=== PATIENT | male | born 1995 | race Caucasian/White ===

== ENCOUNTER → 2016-06-11 | Outpatient (CLI) | payer OTHER | END | disposition home or self-care (01) | LOC: LABWHC1 08:59 | PROVIDERS: ATTEND Psychiatry & Neurology Neurology | DX: G40.209 Localization-related (focal) (partial) symptomatic epilepsy and epileptic syndromes with complex partial seizures, not intractable, without status epilepticus (principal) | CPT/HCPCS: 36415; 80185 ==

== ENCOUNTER → 2017-07-29 | Outpatient (CLI) | payer OTHER | END | disposition home or self-care (01) | LOC: LABWHC1 07:54 | PROVIDERS: ATTEND Psychiatry & Neurology Neurology | DX: G40.209 Localization-related (focal) (partial) symptomatic epilepsy and epileptic syndromes with complex partial seizures, not intractable, without status epilepticus (principal) | CPT/HCPCS: 36415; 80185 ==

== ENCOUNTER → 2018-05-26 | Outpatient (CLI) | payer OTHER | LOC: LABWHC1 10:06 | PROVIDERS: ATTEND Psychiatry & Neurology Neurology | DX: G40.209 Localization-related (focal) (partial) symptomatic epilepsy and epileptic syndromes with complex partial seizures, not intractable, without status epilepticus (principal) | CPT/HCPCS: 36415; 80185 ==

== ENCOUNTER → 2019-01-03 | Outpatient (CLI) | payer OTHER ==
--- NOTE | 2019-01-03 16:44 | CONS ---
CONSULTATION DATE OF SERVICE: 01/03/2019 This patient is a 23-year-old gentleman who has been re-evaluated in [facility] Center for obstructive sleep apnea-hypopnea syndrome. HISTORY OF PRESENT ILLNESS/SLEEP-WAKE EVALUATION: The patient has had obstructive sleep apnea since 2016. At that time he was diagnosed with sleep apnea and started on treatment with BiPAP. Patient continues treatment with BiPAP every night for the whole night. His sleep schedule is from 10 or 11 p.m. until 8 a.m. Recently he had some problems related to the equipment tube. [place] Sleepiness Scale is 3. Patient's weight has increased by 42 pounds since his previous titration, which was done in 2016. PAST MEDICAL HISTORY: Positive for seizure disorder. MEDICATION: Dilantin. SOCIAL HISTORY: Negative for smoking or using alcohol. FAMILY HISTORY: Aortic stenosis and other valve problems, treated surgically. Thyroid problems. PHYSICAL EXAMINATION: GENERAL: A pleasant gentleman without distress. VITAL SIGNS: BP 139/86, HR 82, RR 18, height 6 feet 2 inches, weight 370 pounds. Body mass index 47.5. Temperature 98.0. Oxygen saturation at room air 96%. HEENT: PERRLA, EOMI. Evaluation of oropharynx showed tongue protrudes midline. Extremely low position of soft palate. Mallampati IV. NECK: Supple. No JVD. Thyroid is not palpable. Wide neck; 18-1/2 inches in circumference. LUNGS: Clear to percussion and to auscultation. Good air exchange. No wheezing or rhonchi. HEART: S1, S2 regular. No murmurs, gallops or rubs. ABDOMEN: Obese. EXTREMITIES: No clubbing or cyanosis. CARTOON ANIMATOR: Awake, alert, and oriented X3. Cranial nerves 2 to 7 intact. There is no fasciculation or atrophy. noted. No focal deficits observed. IMPRESSION: 1. Obstructive sleep apnea-hypopnea syndrome. Patient continues to use BiPAP equipment every night. His weight increased by 42 pounds since previous titration. 2. Obesity; body mass index 47.5. 3. History of seizure disorder. No recent episodes. 4. Restriction of nasal breathing. 5. H/o ear infections in childhood. PLAN: 1. Prescription for all necessary BiPAP supplies, including mask, tube, filters. 2. Patient will continue to use BiPAP equipment every night. 3. Obesity. Because of patient's significantly increased weight, I would recommend repeating BiPAP titration. 4. Losing weight. 5. Sleep hygiene with regular time in bed for at least 7-1/2 to 8 hours. 6. No driving if feeling any sleepiness. Thank you very much for allowing me to participate in the management of your patient. Sincerely, Kilo Washington MD, PhD, FAASM Diplomat of [employer] Story Analyst of [facility] [place] MMODL / IJN: [id number] / [facility]
== END | disposition home or self-care (01) ==
LOC: SLEEP 10:22
PROVIDERS: ATTEND Internal Medicine
DX: G47.33 Obstructive sleep apnea (adult) (pediatric) (principal); E66.9 Obesity, unspecified; Z68.42 Body mass index [BMI] 45.0-49.9, adult; Z86.69 Personal history of other diseases of the nervous system and sense organs; Z99.89 Dependence on other enabling machines and devices

== ENCOUNTER → 2019-04-18 | Outpatient (CLI) | payer OTHER | END | disposition home or self-care (01) | LOC: LABWHC1 08:36 | PROVIDERS: ATTEND Psychiatry & Neurology Neurology | DX: G40.209 Localization-related (focal) (partial) symptomatic epilepsy and epileptic syndromes with complex partial seizures, not intractable, without status epilepticus (principal) | CPT/HCPCS: 36415; 80185 ==

== ENCOUNTER → 2019-11-22 | Outpatient (CLI) | payer OTHER ==
--- NOTE | 2019-11-22 10:52 | FL ---
EXAMINATION TYPE: FL barium swallow DATE OF EXAM: 11/22/2019 COMPARISON: None HISTORY: Dysphasia TECHNIQUE: Double air-contrast technique FINDINGS: Esophagus dilates to normal caliber has normal contour gastroesophageal junction. Gastroeso phageal junction opens to normal caliber. No intraluminal or extramural defects are evident. No reflu x was elicited. IMPRESSION: 1. Normal esophagram
== END | disposition home or self-care (01) ==
LOC: RADUSWWP 09:49
PROVIDERS: ATTEND Family Medicine
DX: R13.19 Other dysphagia (principal)
CPT/HCPCS: 74220

== ENCOUNTER → 2019-12-03 | Outpatient (CLI) | payer OTHER ==
--- NOTE | 2019-12-04 09:38 | ECHOF ---
Referral Reason:R94.31 abnormal EKG report MEASUREMENTS -------- HEIGHT: 188.0 cm WEIGHT: 157.8 kg BP: RVIDd: 3.9 cm (< 3.3) IVSd: 1.1 cm (0.6 - 1.1) LVIDd: 4.4 cm (3.9 - 5.3) LVPWd: 1.3 cm (0.6 - 1.1) IVSs: 1.7 cm LVIDs: 3.0 cm LVPWs: 1.7 cm LAESV Index (A-L): 16.81 ml/m Ao Diam: 2.6 cm (2.0 - 3.7) AV Cusp: 1.6 cm (1.5 - 2.6) MV EXCURSION: 20.477 mm (> 18.000) MV EF SLOPE: 56 mm/s (70 - 150) EPSS: 0.3 cm MV E Hollis: 0.92 m/s MV DecT: 142 ms MV A Hollis: 0.63 m/s MV E/A Ratio: 1.45 RAP: 5.00 mmHg RVSP: 21.56 mmHg FINDINGS -------- Sinus rhythm. This was a technically difficult study with suboptimal apical views. The left ventricular size is normal. There is mild concentric left ventricular hypertrophy. Overa ll left ventricular systolic function is normal with, an EF between 55 - 60 %. The diastolic fillin g pattern is normal for the age of the patient {E/E'}. The right ventricle is moderately enlarged. Normal LA size by volume 22+/-6 ml/m2. The right atrial size is normal. xx ml of Lumason was utilized for enhancement of images. Interatrial and interventricular septum intact. There is no evidence of aortic regurgitation. There is no evidence of aortic stenosis. No mitral regurgitation. Mild tricuspid regurgitation present. There is no evidence of pulmonary hypertension. The right v entricular systolic pressure, as measured by Doppler, is 21.56mmHg. There is no pulmonic regurgitation present. The aortic root size is normal. IVC Not well visulized. There is no pericardial effusion. CONCLUSIONS -------- 1. The left ventricular size is normal. 2. There is mild concentric left ventricular hypertrophy. 3. Overall left ventricular systolic function is normal with, an EF between 55 - 60 %. 4. The diastolic filling pattern is normal for the age of the patient {E/E'} 5. The right ventricle is moderately enlarged. 6. Mild tricuspid regurgitation present. QUARRY EQUIPMENT OPERATOR: Radhika Hurtado RDCS
== END | disposition home or self-care (01) ==
LOC: RADECHMAIN 13:44
PROVIDERS: ATTEND Family Medicine
DX: I07.1 Rheumatic tricuspid insufficiency (principal)
CPT/HCPCS: C8929; Q9950; 93306

== ENCOUNTER → 2020-03-19 | Outpatient (CLI) | payer OTHER ==
--- NOTE | 2020-03-20 00:03 | SFUN ---
SLEEP CENTER FOLLOW UP NOTE DATE OF SERVICE: 03/19/2020 This 24-year-old gentleman has been followed in sleep center for treatment of obstructive sleep apnea-hypopnea syndrome. The patient successfully continuing to use his BiPAP equipment every night. No snoring with the machine. [place] Sleepiness Scale today is only 1, which is perfect. I checked his BiPAP unit BiPAP pressure 13/9 cm of water. The patient using it 100% of the time. Average usage 8.2 hours per night, which is good compliance. Leak is 16 L/minutes which is borderline. Apnea-hypopnea index is 3.6, which is in normal range. MEDICATIONS: Dilantin 100 mg once a day. PHYSICAL EXAMINATION: GENERAL: Patient in no distress. VITAL SIGNS: BP 138/89, HR 94, RR 15, height 6 feet 2 inches, weight 337, BMI 43.2, temperature 98.2, oxygen saturation at room air 96%. HEENT: PERRLA, EOMI. Oropharynx extremely low position of soft palate. Mallampati 4. NECK: Supple, no JVD. Thyroid is not palpable. LUNGS: Clear to percussion and to auscultation. Good air exchange. No wheezing or rhonchi. HEART: S1, S2 regular. No murmurs, gallops, or rubs. ABDOMEN: Obese. EXTREMITIES: No clubbing or cyanosis. MARKETING STRATEGIST: Awake, alert, and oriented X3. Cranial nerves 2 to 7 intact. There is no fasciculation or atrophy. noted. No focal deficits observed. IMPRESSION: 1. Obstructive sleep apnea-hypopnea syndrome. Patient demonstrated 100% compliance with BiPAP treatment, benefitting from treatment. Patient lost about 30 pounds since visit in 2019. 2. Obesity, body mass index 43.2. Patient lost about 30 pounds since previous visit. 3. History of epilepsy, seizures disorder. No recent episode. 4. Restriction of nasal breathing. 5. History of ear infection in childhood. PLAN: 1. Patient will continue to use PAP equipment every night for the whole night. 2. Sleep hygiene with regular time in bed for at least 7-1/2 to 8 hours. 3. Precautions related to driving. No driving if feeling sleepiness. 4. I will maintain all necessary prescription for PAP supplies including mask, tube, filters. 5. Watching weight. 6. No driving if feeling sleepiness. 7. Follow-up visit in 6 months or earlier if patient has any problems. Thank you very much for allowing me to participate in management of your patient. Sincerely, Kilo Washington MD, PhD, FAASM Diplomat of [employer] Nurse Informatics Educator of [facility] [place] MMODL / AKHILN: [id number] /
== END | disposition home or self-care (01) ==
LOC: SLEEP 15:34
PROVIDERS: ATTEND Internal Medicine
DX: G47.33 Obstructive sleep apnea (adult) (pediatric) (principal); E66.9 Obesity, unspecified; R91.8 Other nonspecific abnormal finding of lung field; Z68.41 Body mass index [BMI] 40.0-44.9, adult; Z86.69 Personal history of other diseases of the nervous system and sense organs; Z99.89 Dependence on other enabling machines and devices; Z86.19 Personal history of other infectious and parasitic diseases

== ENCOUNTER 2020-10-21 10:45 | Emergency (ER) | payer OTHER ==
[2020-10-21] MEDS ORDERED: KETOROLAC 15 MG/ML 1 ML VIAL IVP STA (11:33)
--- NOTE | 2020-10-21 11:43 | ED ---
Chest Pain HPI - General Chief Complaint: Chest Pain Stated Complaint: chest pain Time Seen by Provider: 10/21/20 11:26 Source: patient, RN notes reviewed Mode of arrival: wheelchair Limitations: no limitations - History of Present Illness Initial Comments: 25-year-old male presents emergency Department chief complaint of chest discomfort. Patient states it started earlier this morning of the sharp. Patient states and the pain has subsided he denies any associated symptoms including diaphoresis, nausea, vomiting, shortness breath, cough or cold sy mptoms, fevers chills. Patient has no prior history along the heart disease he states he does have a history of seizures in which he takes Dilantin. Patient denies any focal weakness headache no dizziness or syncope. - Related Data Home Medications Medication Instructions Recorded Confirmed Phenytoin Sodium Extended 200 mg PO DAILY 10/19/13 10/21/20 [Dilantin] Phenytoin Sodium Extended 300 mg PO HS 10/21/20 10/21/20 [Dilantin] Allergies Allergy/AdvReac Type Severity Reaction Status Date / Time sulfamethoxazole Allergy Rash/Hives Verified 10/21/20 12:12 [From Septra] trimethoprim [From Septra] Allergy Rash/Hives Verified 10/21/20 12:12 Review of Systems ROS Statement: Those systems with pertinent positive or pertinent negative responses have been documented in the HPI. ROS Other: All systems not noted in ROS Statement are negative. EKG Findings - EKG Comments: EKG Findings:: EKG performed at 11:11 normal sinus rhythm rate of 95 KS 150 QRS 100 QT/QTC 350/439 Past Medical History Past Medical History: Seizure Disorder History of Any Multi-Drug Resistant Organisms: None Reported Past Surgical History: Adenoidectomy, Tonsillectomy Past Psychological History: No Psychological Hx Reported Smoking Status: Never smoker Past Alcohol Use History: None Reported Past Drug Use History: None Reported General Exam Limitations: no limitations General appearance: alert, in no apparent distress Head exam: Present: atraumatic, normocephalic, normal inspection Eye exam: Present: normal appearance, PERRL, EOMI. Absent: scleral icterus, conjunctival injection, periorbital swelling ENT exam: Present: normal exam, normal oropharynx, mucous membranes moist Neck exam: Present: normal inspection, full ROM. Absent: tenderness, meningismus, lymphadenopathy Respiratory exam: Present: normal lung sounds bilaterally, chest wall tenderness. Absent: respiratory distress, wheezes, rales, rhonchi, stridor Cardiovascular Exam: Present: regular rate, normal rhythm, normal heart sounds. Absent: systolic murmur, diastolic murmur, rubs, gallop, clicks GI/Abdominal exam: Present: soft, normal bowel sounds. Absent: distended, tenderness, guarding, rebound, rigid Course Vital Signs 10/21/20 10/21/20 10/21/20 11:03 12:05 12:55 Temperature 98.2 F Pulse Rate 102 H 90 Pulse Rate [ 75 Angle Shearer ] Respiratory 18 17 Rate Blood Pressure 161/78 122/82 O2 Sat by Pulse 100 99 Oximetry Chest Pain MDM - MDM 25-year-old presented for chest discomfort. Symptoms improved after Toradol. Workup was negative including negative d-dimer and troponin. Patient has chest wall pain will be discharged in stable condition return parameters discussed. Disposition Clinical Impression: Atypical chest pain, Chest wall pain Disposition: HOME SELF-CARE Condition: Stable Instructions (If sedation given, give patient instructions): Chest Pain (ED) Additional Instructions: Please return to the Emergency Department if symptoms worsen or any other concerns. Is patient prescribed a controlled substance at d/c from ED?: No Referrals: Ton Charles DO [Primary Care Provider] - 1-2 days Time of Disposition: 13:42
[2020-10-21 12:24] LABS: Basophils % (A) 0 %; Eosinophils # (A) 0.1 k/uL (0-0.7); Eosinophils % (A) 2 %; HCT 47.8 % (39.0-53.0); HGB 15.6 gm/dL (13.0-17.5); Lymphocytes # (A) 2.3 k/uL (1.0-4.8); Lymphocytes % (A) 34 %; MCH 28.9 pg (25.0-35.0); MCHC 32.6 g/dL (31.0-37.0); MCV 88.6 fL (80.0-100.0); Mean Platelet Volume 6.5; Monocytes # (A) 0.3 k/uL (0-1.0); Monocytes % (A) 4 %; Neutrophils % (A) 58 %; Platelet Count 397 k/uL (150-450); RBC 5.39 m/uL (4.30-5.90); RDW 13.1 % (11.5-15.5); WBC 6.8 k/uL (3.8-10.6)
--- NOTE | 2020-10-21 12:31 | XR ---
EXAMINATION TYPE: XR chest 2V DATE OF EXAM: 10/21/2020 COMPARISON: NONE HISTORY: Chest pain TECHNIQUE: Frontal and lateral views of the chest are obtained. FINDINGS: There is no focal air space opacity, pleural effusion, or pneumothorax seen. The cardiac silhouette size is within normal limits. The osseous structures are intact. IMPRESSION: No acute cardiopulmonary process.
[2020-10-21 12:42] LABS: ALT 35 U/L (4-49); AST 34 U/L (17-59); African American GFR (CKD) >90 (>60 ml/min/1.73 sqM); Albumin 4.8 g/dL (3.5-5.0); Alkaline Phosphatase 115 U/L (38-126); Anion Gap 11 mmol/L; Blood Urea Nitrogen 16 mg/dL (9-20); Carbon Dioxide 25 mmol/L (22-30); Chloride 105 mmol/L (98-107); Glucose 88 mg/dL (74-99); Lipase 81 U/L (23-300); Non-African American GFR(CKD) >90 (>60 ml/min/1.73 sqM); Potassium 4.3 mmol/L (3.5-5.1); Sodium 141 mmol/L (137-145); Total Bilirubin 0.3 mg/dL (0.2-1.3); Total Protein 7.7 g/dL (6.3-8.2)
[2020-10-21 12:53] LABS: D-Dimer <0.17 mg/L FEU (<0.60); Partial Thromboplastin Time 24.7 sec (22.0-30.0); Prothrombin Time 10.6 sec (9.0-12.0)
[2020-10-21 12:57] VITALS: RESP 17
[2020-10-21 14:00] VITALS: BP 128/82; PULSE 80; TEMP 98.3
== END 2020-10-21 14:01 | disposition home or self-care (01) ==
LOC: EC 10:45
DX: R07.89 Other chest pain (principal); G40.909 Epilepsy, unspecified, not intractable, without status epilepticus; Z79.899 Other long term (current) drug therapy; Z88.1 Allergy status to other antibiotic agents; Z88.2 Allergy status to sulfonamides
CPT/HCPCS: 96374 ×2; 99285 ×2; 36415; 93005; 85379; 80053; 83690; 83735; 84484; 85025; 85610; 85730; 71046; J1885

== ENCOUNTER 2020-10-22 13:03 | Emergency (ER) | payer OTHER ==
[2020-10-22 13:18] VITALS: RESP 18
[2020-10-22 14:02] VITALS: TEMP 98.7
[2020-10-22] MEDS ORDERED: SODIUM CHLORIDE 0.9% 500 ML 500 ML IV STA (14:41)
--- NOTE | 2020-10-22 14:41 | ED ---
Chest Pain HPI - General Chief Complaint: Chest Pain Stated Complaint: Chest pain/ABD pain-Revisit Source: patient, family, RN notes reviewed Mode of arrival: wheelchair Limitations: no limitations - History of Present Illness Initial Comments: 25-year-old, obese white male presents to the emergency room with complaints of left-sided chest pain that radiates to his left axilla. Patient states he was seen yesterday for the same and had an x-ray and lab work and EKG done all within normal limits. States pain resolved with tramadol per mom. Patient states that he get the shower today and had burning chest pain. Patient denies chest pain with exertion, palpation or movement. Denies any shortness of breath, denies any fevers. There is no family history of sudden cardiac . Mom states that she had a valve replacement and there is family history of aortic stenosis. Patient was seen by Dr. Charles and was told that they would schedule an echo but he does not have one scheduled at this time. Patient denies dizzines. Patient has a history of seizure disorder and has been on Dilantin and has been seizure free for several years. MD Complaint: chest pain -: days(s) (2) Onset: during rest Pain Location: substernal, left chest Pain Radiation: none Severity scale (1-10): 7 Quality: other (burning) Consistency: intermittent Improves With: medication-other (Tramadol and NSAIDs) Worsens With: nothing - Related Data Home Medications Medication Instructions Recorded Confirmed Phenytoin Sodium Extended 200 mg PO DAILY 10/19/13 10/22/20 [Dilantin] Phenytoin Sodium Extended 300 mg PO HS 10/21/20 10/22/20 [Dilantin] Previous Rx's Medication Instructions Recorded Famotidine [Pepcid] 20 mg PO DAILY 28 Days #28 tablet 10/22/20 Allergies Allergy/AdvReac Type Severity Reaction Status Date / Time sulfamethoxazole Allergy Rash/Hives Verified 10/22/20 14:28 [From ] trimethoprim [From ] Allergy Rash/Hives Verified 10/22/20 14:28 Review of Systems ROS Statement: Those systems with pertinent positive or pertinent negative responses have been documented in the HPI. ROS Other: All systems not noted in ROS Statement are negative. Past Medical History Past Medical History: Seizure Disorder History of Any Multi-Drug Resistant Organisms: None Reported Past Surgical History: Adenoidectomy, Tonsillectomy Past Psychological History: No Psychological Hx Reported Smoking Status: Never smoker Past Alcohol Use History: None Reported Past Drug Use History: None Reported General Exam Limitations: no limitations General appearance: alert, in no apparent distress Head exam: Present: atraumatic, normocephalic, normal inspection Eye exam: Present: normal appearance, PERRL, EOMI. Absent: scleral icterus, conjunctival injection, periorbital swelling ENT exam: Present: normal exam, normal oropharynx, mucous membranes moist Neck exam: Present: normal inspection, full ROM. Absent: tenderness, meningismus, lymphadenopathy Respiratory exam: Present: normal lung sounds bilaterally. Absent: respiratory distress, wheezes, rales, rhonchi, stridor Cardiovascular Exam: Present: regular rate, normal rhythm, normal heart sounds. Absent: systolic murmur, diastolic murmur, rubs, gallop, clicks GI/Abdominal exam: Present: soft, normal bowel sounds. Absent: distended, tenderness, guarding, rebound, rigid Rectal exam: Present: deferred Extremities exam: Present: normal inspection, full ROM, normal capillary refill. Absent: tenderness, pedal edema, joint swelling, calf tenderness Back exam: Present: normal inspection. Absent: full ROM, tenderness, CVA tenderness (R), CVA tenderness (L), muscle spasm, paraspinal tenderness, vertebral tenderness, rash noted Neurological exam: Present: alert, oriented X3, CN II-XII intact Psychiatric exam: Present: normal affect, normal mood Skin exam: Present: warm, dry, intact, normal color. Absent: rash, cyanosis, diaphoretic, erythema, petechiae, pallor, mottled, abrasion Course Vital Signs 10/22/20 10/22/20 10/22/20 13:14 13:50 15:10 Temperature 97.8 F 98.7 F Pulse Rate 82 94 81 Respiratory 18 18 18 Rate Blood Pressure 141/80 137/88 148/73 O2 Sat by Pulse 100 100 99 Oximetry 10/22/20 16:16 Temperature Pulse Rate 75 Respiratory 18 Rate Blood Pressure 126/80 O2 Sat by Pulse 99 Oximetry Chest Pain MDM - MDM EKG within normal limits, labs are within normal limits with a troponin negative at 0.012. This workup was performed yesterday and is unchanged. Chest x-ray yesterday was negative. Patient without any fever or cough or shortness of breath. Patient has a heart score of 1, (obesity and family history). Patient didn't see primary care doctor Dr. Charles this morning and was told he would schedule an echo for the patient however they do not have the date yet. Patient directed to follow up with primary care doctor and take Pepcid once a day for the burning type chest pain as he described. Patient is well-appearing vital signs within normal limits. Case discussed with Dr Lancaster. Disposition Clinical Impression: Chest pain Disposition: HOME SELF-CARE Condition: Fair Instructions (If sedation given, give patient instructions): Chest Pain (ED) Additional Instructions: Follow-up with the primary care doctor, Dr. Charles in 1 week. Take Pepcid as prescribed once a day. [id number] Tylenol or Motrin for pain. Return to the emergency room with increasing pain, shortness of breath or fevers. Prescriptions: Famotidine [Pepcid] 20 mg PO DAILY 28 Days #28 tablet Is patient prescribed a controlled substance at d/c from ED?: No Referrals: Ton Charles DO [Primary Care Provider] - 1-2 days Time of Disposition: 16:58
[2020-10-22] MEDS ORDERED: KETOROLAC 15 MG/ML 1 ML VIAL IVP STA (14:42)
[2020-10-22 15:58] LABS: Basophils % (A) 0 %; Eosinophils # (A) 0.1 k/uL (0-0.7); Eosinophils % (A) 1 %; HCT 43.1 % (39.0-53.0); HGB 14.8 gm/dL (13.0-17.5); Lymphocytes # (A) 2.5 k/uL (1.0-4.8); Lymphocytes % (A) 25 %; MCH 30.3 pg (25.0-35.0); MCHC 34.3 g/dL (31.0-37.0); MCV 88.4 fL (80.0-100.0); Mean Platelet Volume 6.3; Monocytes # (A) 0.5 k/uL (0-1.0); Monocytes % (A) 5 %; Neutrophils # (A) 6.5 k/uL (1.3-7.7); Neutrophils % (A) 66 %; Platelet Count 345 k/uL (150-450); RBC 4.88 m/uL (4.30-5.90); RDW 13.1 % (11.5-15.5); WBC 9.9 k/uL (3.8-10.6)
[2020-10-22 16:10] LABS: ALT 35 U/L (4-49); AST 31 U/L (17-59); African American GFR (CKD) >90 (>60 ml/min/1.73 sqM); Albumin 4.4 g/dL (3.5-5.0); Alkaline Phosphatase 101 U/L (38-126); Anion Gap 9 mmol/L; Blood Urea Nitrogen 15 mg/dL (9-20); Calcium 9.6 mg/dL (8.4-10.2); Carbon Dioxide 28 mmol/L (22-30); Chloride 105 mmol/L (98-107); Glucose 89 mg/dL (74-99); Magnesium 2.1 mg/dL (1.6-2.3); Non-African American GFR(CKD) >90 (>60 ml/min/1.73 sqM); Potassium 4.3 mmol/L (3.5-5.1); Sodium 142 mmol/L (137-145); Total Bilirubin 0.2 mg/dL (0.2-1.3)
[2020-10-22] MEDS ORDERED: FAMOTIDINE 20 MG/2 ML VIAL IV STA (16:54)
[2020-10-22 17:33] VITALS: BP 129/74; PULSE 81
== END 2020-10-22 17:36 | disposition home or self-care (01) ==
LOC: EC 13:03
DX: R07.89 Other chest pain (principal); G40.909 Epilepsy, unspecified, not intractable, without status epilepticus; E66.9 Obesity, unspecified; Z68.41 Body mass index [BMI] 40.0-44.9, adult
CPT/HCPCS: 36415; 80053; 83735; 84484; 85025; 99285; 96374; 96375; 96361; J1885

== ENCOUNTER → 2020-10-27 | Outpatient (CLI) | payer OTHER ==
[2020-10-27 18:54] LABS: Chol/HDL Ratio 4.84; LDL Cholesterol,Calculated 141.4 mg/dL (0.0-131.0); VLDL Calculation 27.6 mg/dL (5.00-40.00)
== END | disposition home or self-care (01) ==
LOC: LABWHC1 09:18
PROVIDERS: ATTEND Internal Medicine Cardiovascular Disease
DX: E78.2 Mixed hyperlipidemia (principal)
CPT/HCPCS: 36415; 80061; 84450; 84460

== ENCOUNTER → 2020-11-10 | Outpatient (CLI) | payer OTHER | END | disposition home or self-care (01) | DX: G40.209 Localization-related (focal) (partial) symptomatic epilepsy and epileptic syndromes with complex partial seizures, not intractable, without status epilepticus (principal) | CPT/HCPCS: 36415; 80185 ==

== ENCOUNTER 2020-12-02 21:30 | Emergency (ER) | payer OTHER ==
[2020-12-02 21:35] VITALS: TEMP 98.1
[2020-12-02 22:21] VITALS: RESP 18
--- NOTE | 2020-12-02 22:25 | ED ---
General Adult HPI - General Chief complaint: Chest Pain Stated complaint: chest Pain, L arm pain Time Seen by Provider: 12/02/20 21:47 Source: patient Mode of arrival: ambulatory Limitations: no limitations - History of Present Illness Initial comments: 25 year-old male patient presents to the emergency department for evaluation of left sided chest pain and left arm pain. Patient has been having chest pain for the last month. States that he always has pain at a 1-2 on the pain scale. States that at times the pain increases to around a 4/10. States that this morning he started having left upper arm pain and then wrist pain which is new for him. He denies any associated symptoms including shortness of breath, nausea, sweating, dizziness, or weakness. States he is not doing any activity when the pain flares. He has seen cardiology and had stress test last week, he was unable to complete the most rigorous portion of the test, but what he did complete was normal. They are working on authorization for ECHO from his insurance. Denies any abdominal pain, constipation, or diarrhea. Does take Dilantin for seizures and Pepcid, denies any other medications. Mother does report a strong family history of heart disease on her side, unknown family h istory on father's side. - Related Data Home Medications Medication Instructions Recorded Confirmed Phenytoin Sodium Extended 200 mg PO DAILY 10/19/13 10/22/20 [Dilantin] Phenytoin Sodium Extended 300 mg PO HS 10/21/20 10/22/20 [Dilantin] Previous Rx's Medication Instructions Recorded Famotidine [Pepcid] 20 mg PO DAILY 28 Days #28 tablet 10/22/20 Allergies Allergy/AdvReac Type Severity Reaction Status Date / Time sulfamethoxazole Allergy Rash/Hives Verified 12/02/20 21:35 [From ] trimethoprim [From ] Allergy Rash/Hives Verified 12/02/20 21:35 Review of Systems ROS Statement: Those systems with pertinent positive or pertinent negative responses have been documented in the HPI. ROS Other: All systems not noted in ROS Statement are negative. Past Medical History Past Medical History: Seizure Disorder Additional Past Medical History / Comment(s): stress test History of Any Multi-Drug Resistant Organisms: None Reported Past Surgical History: Adenoidectomy, Tonsillectomy Past Psychological History: No Psychological Hx Reported Smoking Status: Never smoker Past Alcohol Use History: None Reported Past Drug Use History: None Reported - Past Family History Mother Additional Family Medical History / Comment(s): Aortic stenosis; heart valve replacement age 39. Maternal grandmother age 48 [place]; maternal grandfather hx [place] General Exam Limitations: no limitations General appearance: alert, in no apparent distress, other (This is a well-devel oped, well-nourished adult male patient in no acute distress. Vital signs upon presentation temperature 98.1F, pulse 94, respirations 17, blood pressure 141/76, pulse ox 99% on room air.) ENT exam: Present: normal exam, normal oropharynx, mucous membranes moist Respiratory exam: Present: normal lung sounds bilaterally. Absent: respiratory distress, wheezes, rales, rhonchi, stridor, chest wall tenderness Cardiovascular Exam: Present: regular rate, normal rhythm, normal heart sounds. Absent: systolic murmur, diastolic murmur, rubs, gallop, clicks GI/Abdominal exam: Present: soft, normal bowel sounds. Absent: distended, tenderness, guarding, rebound, rigid Neurological exam: Present: alert, oriented X3, CN II-XII intact Psychiatric exam: Present: normal affect, normal mood Skin exam: Present: warm, dry, intact, normal color. Absent: rash Course Vital Signs 12/02/20 12/02/20 21:32 22:18 Temperature 98.1 F Pulse Rate 94 85 Respiratory 17 18 Rate Blood Pressure 141/76 138/79 O2 Sat by Pulse 99 98 Oximetry EKG Findings - EKG Comments: EKG Findings:: EKG obtained at 2145 shows normal sinus rhythm with ventricular rate of 82, [place] interval 158, QRS duration 100, QT 374, QTC 436. No evidence of ST elevation or depression. Medical Decision Making - Medical Decision Making 25-year-old male patient presents for evaluation of left-sided chest pain, left arm pain and left wrist pain. Physical examination was unremarkable. Lungs clear to auscultation. No reproducible pain. Radial pulses intact. Arm is pink, warm, dry. Labs reviewed and were unremarkable. Troponin negative. CT angiography of the chest was obtained and showed no abnormalities. I did discuss results with patient and his mother. Instructed them to follow up with cardiology for ECHO as planned. Return parameters were discussed in detail. They verbalize understanding and agree with this plan. Case discussed with my attending Dr. Flores. - Lab Data Result diagrams: 12/02/20 22:23 12/02/20 22:23 Lab Results 12/02/20 12/02/20 12/02/20 Range/Units 22:23 22:23 22:23 WBC 12.3 H (3.8-10.6) k/uL RBC 5.16 (4.30-5.90) m/uL Hgb 15.6 (13.0-17.5) gm/dL Hct 46.4 (39.0-53.0) % MCV 89.9 (80.0-100.0) fL MCH 30.3 (25.0-35.0) pg MCHC 33.7 (31.0-37.0) g/dL RDW 12.7 (11.5-15.5) % Plt Count 377 (150-450) k/uL MPV 6.7 Neutrophils % 65 % Lymphocytes % 25 % Monocytes % 5 % Eosinophils % 3 % Basophils % 0 % Neutrophils # 8.0 H (1.3-7.7) k/uL Lymphocytes # 3.1 (1.0-4.8) k/uL Monocytes # 0.6 (0-1.0) k/uL Eosinophils # 0.4 (0-0.7) k/uL Basophils # 0.0 (0-0.2) k/uL PT 10.5 (9.0-12.0) sec INR 1.0 (<1.2) APTT 24.9 (22.0-30.0) sec Sodium 139 (137-145) mmol/L Potassium 4.2 (3.5-5.1) mmol/L Chloride 104 (98-107) mmol/L Carbon Dioxide 26 (22-30) mmol/L Anion Gap 9 mmol/L BUN 15 (9-20) mg/dL Creatinine 0.62 L (0.66-1.25) mg/dL Est GFR (CKD-EPI)AfAm >90 (>60 ml/min/1.73 sqM) Est GFR (CKD-EPI)NonAf >90 (>60 ml/min/1.73 sqM) Glucose 96 (74-99) mg/dL Calcium 9.8 (8.4-10.2) mg/dL Magnesium 2.2 (1.6-2.3) mg/dL Total Bilirubin <0.1 L (0.2-1.3) mg/dL AST 28 (17-59) U/L ALT 32 (4-49) U/L Alkaline Phosphatase 108 (38-126) U/L Troponin I (0.000-0.034) ng/mL Total Protein 7.1 (6.3-8.2) g/dL Albumin 4.4 (3.5-5.0) g/dL Lipase 83 (23-300) U/L 12/02/20 Range/Units 22:23 WBC (3.8-10.6) k/uL RBC (4.30-5.90) m/uL Hgb (13.0-17.5) gm/dL Hct (39.0-53.0) % MCV (80.0-100.0) fL MCH (25.0-35.0) pg MCHC (31.0-37.0) g/dL RDW (11.5-15.5) % Plt Count (150-450) k/uL MPV Neutrophils % % Lymphocytes % % Monocytes % % Eosinophils % % Basophils % % Neutrophils # (1.3-7.7) k/uL Lymphocytes # (1.0-4.8) k/uL Monocytes # (0-1.0) k/uL Eosinophils # (0-0.7) k/uL Basophils # (0-0.2) k/uL PT (9.0-12.0) sec INR (<1.2) APTT (22.0-30.0) sec Sodium (137-145) mmol/L Potassium (3.5-5.1) mmol/L Chloride (98-107) mmol/L Carbon Dioxide (22-30) mmol/L Anion Gap mmol/L BUN (9-20) mg/dL Creatinine (0.66-1.25) mg/dL Est GFR (CKD-EPI)AfAm (>60 ml/min/1.73 sqM) Est GFR (CKD-EPI)NonAf (>60 ml/min/1.73 sqM) Glucose (74-99) mg/dL Calcium (8.4-10.2) mg/dL Magnesium (1.6-2.3) mg/dL Total Bilirubin (0.2-1.3) mg/dL AST (17-59) U/L ALT (4-49) U/L Alkaline Phosphatase (38-126) U/L Troponin I <0.012 (0.000-0.034) ng/mL Total Protein (6.3-8.2) g/dL Albumin (3.5-5.0) g/dL Lipase (23-300) U/L - Radiology Data Radiology results: report reviewed, image reviewed Two-view x-ray of the chest is obtained. Report is reviewed in its entirety. Impression by Dr. Joseph shows normal chest. No change. CT chest angiography was was obtained. Report was reviewed in its entirety. Impression by Dr. Joseph shows negative computed tomography scan of the chest. No evidence of pulmonary embolism. Disposition Clinical Impression: Chest pain, Left arm pain Disposition: HOME SELF-CARE Condition: Good Instructions (If sedation given, give patient instructions): Chest Pain (ED), Arm Pain (ED) Additional Instructions: Follow up with primary care physician and cardiology as soon as possible. Return to the emergency department for evaluation for any new, worsening, or concerning symptoms. Is patient prescribed a controlled substance at d/c from ED?: No Referrals: Ton Charles DO [Primary Care Provider] - 1-2 days Time of Disposition: 23:57
[2020-12-02 22:32] LABS: Basophils % (A) 0 %; Eosinophils # (A) 0.4 k/uL (0-0.7); Eosinophils % (A) 3 %; HCT 46.4 % (39.0-53.0); HGB 15.6 gm/dL (13.0-17.5); Lymphocytes # (A) 3.1 k/uL (1.0-4.8); Lymphocytes % (A) 25 %; MCH 30.3 pg (25.0-35.0); MCHC 33.7 g/dL (31.0-37.0); MCV 89.9 fL (80.0-100.0); Mean Platelet Volume 6.7; Monocytes # (A) 0.6 k/uL (0-1.0); Monocytes % (A) 5 %; Neutrophils % (A) 65 %; Platelet Count 377 k/uL (150-450); RBC 5.16 m/uL (4.30-5.90); RDW 12.7 % (11.5-15.5); WBC 12.3 k/uL (3.8-10.6)
[2020-12-02 22:41] LABS: ALT 32 U/L (4-49); AST 28 U/L (17-59); African American GFR (CKD) >90 (>60 ml/min/1.73 sqM); Albumin 4.4 g/dL (3.5-5.0); Alkaline Phosphatase 108 U/L (38-126); Anion Gap 9 mmol/L; Blood Urea Nitrogen 15 mg/dL (9-20); Calcium 9.8 mg/dL (8.4-10.2); Carbon Dioxide 26 mmol/L (22-30); Chloride 104 mmol/L (98-107); Glucose 96 mg/dL (74-99); Lipase 83 U/L (23-300); Magnesium 2.2 mg/dL (1.6-2.3); Non-African American GFR(CKD) >90 (>60 ml/min/1.73 sqM); Potassium 4.2 mmol/L (3.5-5.1); Sodium 139 mmol/L (137-145); Total Bilirubin <0.1 mg/dL (0.2-1.3); Total Protein 7.1 g/dL (6.3-8.2)
[2020-12-02 22:42] LABS: Partial Thromboplastin Time 24.9 sec (22.0-30.0); Prothrombin Time 10.5 sec (9.0-12.0)
--- NOTE | 2020-12-02 23:00 | XR ---
EXAMINATION TYPE: XR chest 2V DATE OF EXAM: 12/02/2020 COMPARISON: 10/21/2020 HISTORY: Chest pain TECHNIQUE: FINDINGS: Heart and mediastinal normal. Lungs are clear. Diaphragm is normal. Bony thorax appears nor mal. IMPRESSION: Normal chest. No change.
--- NOTE | 2020-12-02 23:54 | CT ---
EXAMINATION TYPE: CT chest angio for PE DATE OF EXAM: 12/02/2020 COMPARISON: None HISTORY: Chest pain CT DLP: 1050.2 mGycm Automated exposure control for dose reduction was used. CONTRAST: Performed with IV Contrast, patient injected with 80 mL of Isovue 370. Images obtained from the thoracic inlet to the diaphragm with IV contrast. There are 3-D post processed images. The lungs are clear of infiltrate. There is no pleural effusion. There is no pericardial effusion. He art size is normal. There is no mediastinal adenopathy. There are no hilar masses. Thoracic aorta appears normal. There i s no aneurysm or dissection. There is normal contrast opacification of the pulmonary arteries. There are no filling defects. The thoracic spine is intact. There is no compression fracture. Sternum is intact. IMPRESSION: Negative CT scan of the chest. No evidence of pulmonary embolism.
[2020-12-03 00:08] VITALS: BP 130/74; PULSE 75
== END 2020-12-03 00:07 | disposition home or self-care (01) ==
LOC: EC 21:30
DX: R07.89 Other chest pain (principal); M79.622 Pain in left upper arm; Z79.899 Other long term (current) drug therapy
CPT/HCPCS: 36415; 93005; 80053; 83690; 83735; 84484; 85025; 85610; 85730; 71046; 71275; 99285; Q9967

== ENCOUNTER → 2020-12-24 | Outpatient (CLI) | payer OTHER ==
--- NOTE | 2020-12-24 21:53 | SFUN ---
SLEEP CENTER FOLLOW UP NOTE DATE OF SERVICE: 12/24/2020 This 25-year-old gentleman has been followed in Sleep Center for treatment of obstructive sleep apnea-hypopnea syndrome. Patient continues to use his CPAP equipment every night for the whole night. He sleeps well with the machine. No snoring. Message on the machine showed time for using the motor is more than it should be. Electrical cord was broken. I checked the BiPAP unit. Pressure is 13/9 cm of water. Usage is 100% of nights and 29/30 nights for more than 4 hours, average 8.1 hours per night, which is perfect. Leak is 18 L/minute, which is borderline. Apnea-hypopnea index is 3.2, which is normal. MEDICATIONS: Dilantin 100 mg once a day. PHYSICAL EXAMINATION: GENERAL: A pleasant patient in no distress. VITAL SIGNS: BP 153/92, HR 88, RR 15, height 6 feet 2 inches, weight 337, which is the same as the last visit. Body mass index 43.3, temperature 98.5, oxygen saturation at room air 97%. HEENT: PERRLA, EOMI, evaluation of oropharynx showed tongue protrudes midline. Extremely low position of soft palate. Mallampati IV. NECK: Supple, no JVD. Thyroid is not palpable. LUNGS: Clear to percussion and to auscultation. Good air exchange. No wheezing or rhonchi. HEART: S1, S2 regular. No murmurs, gallops, or rubs. ABDOMEN: Obese. EXTREMITIES: No clubbing or cyanosis. IT INSTRUCTOR: Awake, alert, and oriented X3. Cranial nerves 2 to 7 intact. There is no fasciculation or atrophy. noted. No focal deficits observed. IMPRESSION: 1. Obstructive sleep apnea-hypopnea syndrome. Patient demonstrated great compliance with treatment. Normal respiration on BiPAP. 2. History of epilepsy. No recent seizure episodes. 3. Obesity. Body mass index 43.3. 4. Restriction of nasal breathing. 5. History of ear infection in childhood. PLAN: 1. Replace air filter. 2. Prescription to replace electrical cord. 3. Patient will continue to use PAP equipment every night for the whole night. 4. Sleep hygiene with regular time in bed for at least 7-1/2 to 8 hours. 5. Precautions related to driving. No driving if feeling sleepiness. 6. I will maintain all necessary prescription for PAP supplies including mask, tube, filters. 7. Watching weight. 8. Follow-up visit in 6 months or earlier if patient has any problems. Thank you very much for allowing me to participate in the management of your patient. Sincerely, Kilo Washington MD, PhD, FAASM Diplomat of [place] [employer] Sleep Medicine Board of [place] [employer] Leasing Representative of [facility] [place] MMNATANAELL / [place]: [id number] /
== END ==
LOC: SLEEP 13:01
PROVIDERS: ATTEND Internal Medicine
DX: G47.33 Obstructive sleep apnea (adult) (pediatric) (principal); E66.9 Obesity, unspecified; Z68.41 Body mass index [BMI] 40.0-44.9, adult; Z86.69 Personal history of other diseases of the nervous system and sense organs; R06.89 Other abnormalities of breathing; Z99.89 Dependence on other enabling machines and devices; Z88.2 Allergy status to sulfonamides

== ENCOUNTER → 2021-06-24 | Outpatient (CLI) | payer OTHER ==
--- NOTE | 2021-06-24 20:30 | SFUN ---
SLEEP CENTER FOLLOW UP NOTE DATE OF SERVICE: 06/24/2021 This 25-year-old gentleman has been followed in Sleep Center for treatment of obstructive sleep apnea-hypopnea syndrome. The patient continues to use his CPAP equipment every night for the whole night. Recently he had episodes when his machine stopped working during his sleep. [place] Sleepiness Scale today is 4. I checked his BiPAP unit. Pressure is 12/9 cm of water, usage 30/30 nights, 29/30 nights for more than 4 hours. Average usage is 8.1 hours per night; great compliance. Leak is 8 L/minute, which is in normal range. Apnea-hypopnea index is 1.9, which is perfect. The patient is using an AirFit nasal pillow mask. The machine screen indicates that the time of motor usage in the machine has been exceeded. MEDICATIONS: Dilantin. PHYSICAL EXAMINATION: GENERAL: Pleasant patient in no distress. VITAL SIGNS: BP 149/85, HR 99, RR 16, weight 341 pounds. Patient's weight increased by 4 pounds. Height 6 feet 2 inches. Temperature 97.7, oxygen saturation at room air 97%. HEENT: PERRLA, EOMI, evaluation of oropharynx showed tongue protrudes midline. Extremely low position of soft palate; Mallampati IV. NECK: Supple, no JVD. Thyroid is not palpable. LUNGS: Clear to percussion and to auscultation. Good air exchange. No wheezing or rhonchi. HEART: S1, S2 regular. No murmurs, gallops, or rubs. ABDOMEN: Obese. EXTREMITIES: No clubbing or cyanosis. NITROGLYCERIN SEPARATOR OPERATOR: Awake, alert, and oriented X3. Cranial nerves 2 to 7 intact. There is no fasciculation or atrophy. noted. No focal deficits observed. IMPRESSION: 1. Obstructive sleep apnea-hypopnea syndrome; practically 100% compliance with BiPAP treatment, benefitting from treatment. Normal respiration on BiPAP. 2. BiPAP unit is more than 5 years old. Motor life time has been exceeded. The machine has started to stop working during the night. 3. History of epilepsy. 4. Obesity. 5. Some restriction of nasal breathing. 6. History of ear infection in childhood. PLAN: 1. Prescription to replace BiPAP unit. 2. Patient will continue to use PAP equipment every night for the whole night. 3. Sleep hygiene with regular time in bed for at least 7-1/2 to 8 hours. 4. Precautions related to driving. No driving if feeling sleepiness. 5. I will maintain all necessary prescription for PAP supplies including mask, tube, filters. 6. Watching weight. 7. Follow-up visit in one year, or earlier if patient has any problems. Thank you very much for allowing me to participate in the management of your patient. Sincerely, Kilo Washington MD, PhD, FAASM Diplomat of [place] [employer] Sleep Medicine Board of [place] [employer] Parer of [facility] [place] MMODL / AKHILN: [id number] /
== END ==
LOC: SLEEP 10:42
PROVIDERS: ATTEND Internal Medicine
DX: G47.33 Obstructive sleep apnea (adult) (pediatric) (principal); Z99.89 Dependence on other enabling machines and devices; E66.9 Obesity, unspecified; Z87.09 Personal history of other diseases of the respiratory system; Z86.19 Personal history of other infectious and parasitic diseases; Z88.2 Allergy status to sulfonamides

== ENCOUNTER → 2021-08-07 | Outpatient (CLI) | payer OTHER | END | disposition home or self-care (01) | LOC: LABWHC1 08:41 | PROVIDERS: ATTEND Psychiatry & Neurology Neurology | DX: G40.209 Localization-related (focal) (partial) symptomatic epilepsy and epileptic syndromes with complex partial seizures, not intractable, without status epilepticus (principal) | CPT/HCPCS: 36415; 80185 ==

== ENCOUNTER → 2021-10-07 | Outpatient (CLI) | payer OTHER | END | disposition home or self-care (01) | LOC: LABWHC1 09:40 | PROVIDERS: ATTEND Psychiatry & Neurology Neurology | DX: G40.209 Localization-related (focal) (partial) symptomatic epilepsy and epileptic syndromes with complex partial seizures, not intractable, without status epilepticus (principal) | CPT/HCPCS: 36415; 80185 ==

== ENCOUNTER → 2021-12-22 | Outpatient (CLI) | payer OTHER ==
--- NOTE | 2021-12-22 15:31 | P.PN ---
Subjective DATE: 12/22/2021 FOLLOW UP VISIT. Patient with obstructive sleep apnea hypopnea syndrome return to sleep center for follow-up visit. His is BiPAP unit was replaced. Today is first visit after treatment with a new BiPAP unit was started. Patient was able to use PAP equipment every night for the whole night. The patient does not have significant problems with the mask, PAP pressure and humidification. [place] sleepiness scale is 3. I checked information from PAP unit. BIPAP unit pressure 12/9 cm H2O. Usage is 100 % for more then 4 hours, average 8.8 hours per night. Leak is 34.8 l/m, which is in acceptable range. Apnea Hypopnea Index is 3.3, which is normal. MEDICATIONS:1. Dilantin 2. Chlorthalidone 25 mg daily During physical exam: GENERAL: A pleasant patient without any distress. VITAL SIGNS: BP 142/72, HR 77, RR 16, weight 320, temperature 96.9, oxygen saturation at room air 97. HEENT: PERRLA, EOMI.low position of soft palate, Mallapati for . NECK: Supple. No JVD. LUNGS: Clear to percussion and to auscultation. Good air exchange. No wheezing or rhonchi. HEART: S1, S2 regular. ABDOMEN: Soft and nontender. Obese EXTREMITIES: No clubbing or cyanosis. PER DIEM NURSE: Awake, alert, and oriented x3. No focal deficit. Impressions: 1. Obstructive sleep apnea-hypopnea syndrome. Patient demonstrated great compliance with treatment, benefiting from treatment. 2. Obesity, patient lost 21 pounds since previous visit. 3. History of epilepsy. 4. Some restriction of nasal breathing. 5. History of ear infection in the past. Plan: 1. Continue using PAP equipment every night for the whole night. 2. To change air filter at least 1-2 times per month. 3. PAP unit should stay lower then position of the head. 4. Advised patient to remove all remaining water from humidifier canister daily and make it dry after each usage. Refill canister with fresh distilled water before each usage. 5. Sleep hygiene with regular time in bed for at least 8 hours. 6. Precautions related to driving. No driving if feel any sleepiness. 7. I will maintain prescription for PAP supplies including mask, tube, filters. 8. Follow up visit in 6 months or earlier if patient has any problems. 9. Aggressive losing weight weight. Thank you very much for allowing me to participate in the management of your patient. Kilo Washington MD, PhD, FAASM. Diplomat of [place] [employer], Sleep Medicine Board by [place] [employer] Licensed Plumber of [facility] [place]
== END ==
LOC: SLEEP 15:06
PROVIDERS: ATTEND Internal Medicine
DX: G47.33 Obstructive sleep apnea (adult) (pediatric) (principal); E66.9 Obesity, unspecified; Z88.2 Allergy status to sulfonamides; R06.5 Mouth breathing
CPT/HCPCS: 99212

== ENCOUNTER 2022-06-04 01:22 | Emergency (ER) | payer OTHER ==
[2022-06-04 01:42] VITALS: BP 147/92; PULSE 84; RESP 12; TEMP 98.2
[2022-06-04] MEDS ORDERED: KETOROLAC 15 MG/ML 1 ML VIAL IVP STA (01:50)
--- NOTE | 2022-06-04 01:55 | ED ---
General Adult HPI - General Chief complaint: Abdominal Pain Stated complaint: Upper Lt side pain Time Seen by Provider: 06/04/22 01:25 Source: patient, RN notes reviewed, old records reviewed Mode of arrival: ambulatory Limitations: no limitations - History of Present Illness Initial comments: 26-year-old male presents to the emergency room with complaints of left upper chest pain describes the pain as burning. Pain started while at rest. Denies any diaphoresis, no nausea vomiting diarrhea or fevers. No cough. No trauma. States he has a history of a "leaky heart " diagnosed by ultrasound 2 years ago. States also had a stress test at that time and was told he had blockages but no intervention necessary. He takes Dilantin for his seizures. Nonsmoker. States that he did lift two bags of salt today but did not cause any injury. -: hour(s) (1) Location: chest (left upper lateral chest pain) Radiation: extremity (left shoulder) Quality: burning Associated Symptoms: denies other symptoms - Related Data Home Medications Medication Instructions Recorded Confirmed Phenytoin Sodium Extended 200 mg PO DAILY 10/19/13 10/22/20 [Dilantin] Phenytoin Sodium Extended 300 mg PO HS 10/21/20 10/22/20 [Dilantin] Previous Rx's Medication Instructions Recorded Famotidine [Pepcid] 20 mg PO DAILY 28 Days #28 tablet 10/22/20 Allergies Allergy/AdvReac Type Severity Reaction Status Date / Time sulfamethoxazole Allergy Rash/Hives Verified 12/02/20 21:35 [From Septra] trimethoprim [From Septra] Allergy Rash/Hives Verified 12/02/20 21:35 Review of Systems ROS Statement: Those systems with pertinent positive or pertinent negative responses have been documented in the HPI. ROS Other: All systems not noted in ROS Statement are negative. Past Medical History Past Medical History: Seizure Disorder Additional Past Medical History / Comment(s): stress test History of Any Multi-Drug Resistant Organisms: None Reported Past Surgical History: Adenoidectomy, Tonsillectomy Past Psychological History: No Psychological Hx Reported Smoking Status: Never smoker Past Alcohol Use History: None Reported Past Drug Use History: None Reported - Past Family History Mother Additional Family Medical History / Comment(s): Aortic stenosis; heart valve replacement age 37. Maternal grandmother age 48 [place]; maternal grandfather hx [place] General Exam Limitations: no limitations General appearance: alert, in no apparent distress Head exam: Present: atraumatic Neck exam: Absent: tenderness, meningismus Respiratory exam: Present: normal lung sounds bilaterally. Absent: respiratory distress, accessory muscle use Cardiovascular Exam: Present: regular rate, normal rhythm, normal heart sounds GI/Abdominal exam: Present: soft. Absent: distended, tenderness, rigid Extremities exam: Present: normal capillary refill Back exam: Absent: tenderness Neurological exam: Present: alert, oriented X3, normal gait Psychiatric exam: Present: normal affect, normal mood Skin exam: Present: warm, dry, normal color. Absent: cyanosis, diaphoretic, petechiae, pallor Course Vital Signs 06/04/22 01:35 Temperature 98.2 F Pulse Rate 84 Respiratory 12 Rate Blood Pressure 147/92 O2 Sat by Pulse 97 Oximetry EKG Findings - EKG Results: EKG: sinus rhythm (Ventricular rate of 88, [place] interval 0.160, QRS 0.102, QTC 0.407;) Medical Decision Making - Medical Decision Making Chest x-ray interpreted by me shows no evidence of consolidation, cardiac silhouette within normal size. No evidence of free air. Trachea midline. Radiologist interpretation normal chest no acute change. White blood cell count 13.0. Hemoglobin and hematocrit are stable. Troponin is negative. Ventricular rate of 88, [place] interval 0.160, QRS 0.102, QTC 0.407, no change compared to old. Echo was performed on 12/03/2019 showing left ventricular size normal, mild concentric left ventricular hypertrophy, overall left ventricular systolic function normal with an EF of 55-60%. Diastolic filling pattern normal, right v entricle moderately enlarged. Mild tricuspid regurgitation presents. HEART score low. Patient will be discharged home to follow up with his primary care doctor Monday. Return with any new or concerning symptoms. He is agreeable to this plan of care. Case discussed with Dr. Flores. Was pt. sent in by a medical professional or institution? @ -no Did you speak to anyone other than the patient for history? @ -no Did you review nursing and triage notes? @ -yes i agree Were old charts reviewed? @ -yes previous EKG, echo Differential Diagnosis? @ -Differential Chest Pain: Stable Angina, Unstable Angina, STEMI, NSTEMI Aortic Dissection, Pneumothorax, Musculoskeletal, Esophageal Spasm GERD, Cholecystitis, Pancreatitis, Zoster, this is not meant to be an all-inclusive list. EKG interpreted by me (3pts min.)? @ -yes as above X-rays interpreted by me (1pt min.)? @ -yes as above CT interpreted by me (1pt min.)? @ -n/a U/S interpreted by me (1pt. min.)? @ -n/a What testing was considered but not performed? (CT, X-rays, U/S, labs)? Why? @ none What meds were considered but not given? Why? @ -none Did you discuss the management of the patient with other professionals? @ -no Did you reconcile home meds? @ -no Was smoking cessation discussed for >3mins.? @ -no Was critical care preformed (if so, how long)? @ -no Were there social determinants of health that impacted care today? How? (Homelessness, low income, unemployed, alcoholism, drug addiction, transportation, low edu. Level, literacy, decrease access to med. care, halfway, rehab)? @ -low education level Was there de-escalation of care discussed even if they declined? (Discuss DNR or withdrawal of care, Hospice)? @ -no What co-morbidities impacted this encounter? (DM, HTN, Smoking, COPD, CAD, Cancer, CVA, Hep., AIDS, mental health diagnosis, sleep apnea, morbid obesity)? @ -Obesity, seizure, obstructive sleep apnea Was patient admitted / discharged? @ -discharged Undiagnosed new problem with uncertain prognosis? @ -[none] Drug Therapy requiring intensive monitoring for toxicity (Heparin, Nitro, Insulin, Cardizem)? @ -no Were any procedures done? @ -no Diagnosis/symptom? @ -Atypical chest pain Acute, or Chronic, or Acute on Chronic? @ -acute Uncomplicated (without systemic symptoms) or Complicated (systemic symptoms)? @ -Uncomplicated Side effects of treatment? @ -[none] Exacerbation, Progression, or Severe Exacerbation] @ -[no] Poses a threat to life or bodily function? @ -[no] - Lab Data Result diagrams: 06/04/22 01:49 06/04/22 01:49 Lab Results 06/04/22 06/04/22 06/04/22 Range/Units 01:49 01:49 01:49 WBC 13.0 H (3.8-10.6) k/uL RBC 5.64 (4.30-5.90) m/uL Hgb 16.6 (13.0-17.5) gm/dL Hct 48.4 (39.0-53.0) % MCV 85.8 (80.0-100.0) fL MCH 29.4 (25.0-35.0) pg MCHC 34.3 (31.0-37.0) g/dL RDW 13.0 (11.5-15.5) % Plt Count 362 (150-450) k/uL MPV 6.9 Neutrophils % 58 % Lymphocytes % 32 % Monocytes % 5 % Eosinophils % 2 % Basophils % 0 % Neutrophils # 7.6 (1.3-7.7) k/uL Lymphocytes # 4.1 (1.0-4.8) k/uL Monocytes # 0.7 (0-1.0) k/uL Eosinophils # 0.2 (0-0.7) k/uL Basophils # 0.1 (0-0.2) k/uL Sodium 139 (137-145) mmol/L Potassium 4.4 (3.5-5.1) mmol/L Chloride 102 (98-107) mmol/L Carbon Dioxide 25 (22-30) mmol/L Anion Gap 12 mmol/L BUN 13 (9-20) mg/dL Creatinine 0.68 (0.66-1.25) mg/dL Est GFR (CKD-EPI)AfAm >90 (>60 ml/min/1.73 sqM) Est GFR (CKD-EPI)NonAf >90 (>60 ml/min/1.73 sqM) Glucose 91 (74-99) mg/dL Calcium 10.2 (8.4-10.2) mg/dL Total Bilirubin 0.5 (0.2-1.3) mg/dL AST 36 (17-59) U/L ALT 48 (4-49) U/L Alkaline Phosphatase 111 (38-126) U/L Troponin I <0.012 (0.000-0.034) ng/mL Total Protein 8.2 (6.3-8.2) g/dL Albumin 4.9 (3.5-5.0) g/dL Amylase 61 (30-110) U/L Lipase 95 (23-300) U/L Disposition Clinical Impression: Atypical chest pain Disposition: HOME SELF-CARE Condition: Good Instructions (If sedation given, give patient instructions): Chest Pain (ED) Additional Instructions: Follow-up with your primary care doctor on Monday. Return to the emergency room with any new or concerning symptoms. Tylenol and/or Motrin as needed for pain or discomfort. Is patient prescribed a controlled substance at d/c from ED?: No Referrals: Ton Charles DO [Primary Care Provider] - 1-2 days Time of Disposition: 02:59
--- NOTE | 2022-06-04 02:24 | XR ---
EXAMINATION TYPE: XR chest 2V DATE OF EXAM: 06/04/2022 COMPARISON: 12/02/2020 HISTORY: Chest pain TECHNIQUE: 2 views FINDINGS: Heart and mediastinum are normal. Lungs are clear. Diaphragm is normal. Bony thorax appears normal. IMPRESSION: Normal chest. No adverse change.
[2022-06-04 02:26] LABS: Basophils # (A) 0.1 k/uL (0-0.2); Basophils % (A) 0 %; Eosinophils # (A) 0.2 k/uL (0-0.7); Eosinophils % (A) 2 %; HCT 48.4 % (39.0-53.0); HGB 16.6 gm/dL (13.0-17.5); Lymphocytes # (A) 4.1 k/uL (1.0-4.8); Lymphocytes % (A) 32 %; MCH 29.4 pg (25.0-35.0); MCHC 34.3 g/dL (31.0-37.0); MCV 85.8 fL (80.0-100.0); Mean Platelet Volume 6.9; Monocytes # (A) 0.7 k/uL (0-1.0); Monocytes % (A) 5 %; Neutrophils # (A) 7.6 k/uL (1.3-7.7); Neutrophils % (A) 58 %; Platelet Count 362 k/uL (150-450); RBC 5.64 m/uL (4.30-5.90)
[2022-06-04 02:37] LABS: ALT 48 U/L (4-49); AST 36 U/L (17-59); African American GFR (CKD) >90 (>60 ml/min/1.73 sqM); Albumin 4.9 g/dL (3.5-5.0); Alkaline Phosphatase 111 U/L (38-126); Amylase 61 U/L (30-110); Anion Gap 12 mmol/L; Blood Urea Nitrogen 13 mg/dL (9-20); Calcium 10.2 mg/dL (8.4-10.2); Carbon Dioxide 25 mmol/L (22-30); Chloride 102 mmol/L (98-107); Glucose 91 mg/dL (74-99); Lipase 95 U/L (23-300); Non-African American GFR(CKD) >90 (>60 ml/min/1.73 sqM); Potassium 4.4 mmol/L (3.5-5.1); Sodium 139 mmol/L (137-145); Total Bilirubin 0.5 mg/dL (0.2-1.3); Total Protein 8.2 g/dL (6.3-8.2)
== END 2022-06-04 03:19 | disposition home or self-care (01) ==
LOC: EC 01:22
DX: R07.89 Other chest pain (principal); G40.909 Epilepsy, unspecified, not intractable, without status epilepticus; Z88.2 Allergy status to sulfonamides
CPT/HCPCS: 96374 ×2; 99285 ×2; 99284; 36415; 80053; 82150; 83690; 84484; 85025; 71046; J1885

== ENCOUNTER 2022-06-04 14:45 | Emergency (ER) | payer OTHER ==
--- NOTE | 2022-06-04 15:13 | ED ---
General Adult HPI - General Chief complaint: Neuro Symptoms/Deficit Stated complaint: lt side facial area numbness Time Seen by Provider: 06/04/22 15:12 Source: patient Mode of arrival: ambulatory Limitations: no limitations - History of Present Illness Initial comments: Patient presents to the ED with his brother for evaluation. Patient states that he has had "numbness" to his left cheek since about 9 AM this morning. Patient states that he first noticed this numbness when he was out in the cold. Patient states that his numbness has since improved, but has not completely resolved. Patient denies any other area of sensory deficits/change. Patient denies trauma or injury, any pain, fever or chills, headache, focal weakness, visual changes, speech difficulty, dizziness, neck/back pain, chest pain, dyspnea, palpitations, abdominal pain, nausea or vomiting, dysuria or urinary symptoms, or any other symptoms or complaints. Patient states that he takes phenytoin for seizure control, and he states that he has not had a seizure since 2000. - Related Data Home Medications Medication Instructions Recorded Confirmed Phenytoin Sodium Extended 200 mg PO BID 10/21/20 06/04/22 [Dilantin] Chlorthalidone [Hygroton] 25 mg PO DAILY 06/04/22 06/04/22 Allergies Allergy/AdvReac Type Severity Reaction Status Date / Time sulfamethoxazole Allergy Rash/Hives Verified 06/04/22 16:56 [From ] trimethoprim [From Janra] Allergy Rash/Hives Verified 06/04/22 16:56 Review of Systems ROS Statement: Those systems with pertinent positive or pertinent negative responses have been documented in the HPI. ROS Other: All systems not noted in ROS Statement are negative. Past Medical History Past Medical History: Seizure Disorder Additional Past Medical History / Comment(s): stress test History of Any Multi-Drug Resistant Organisms: None Reported Past Surgical History: Adenoidectomy, Tonsillectomy Past Psychological History: No Psychological Hx Reported Smoking Status: Never smoker Past Alcohol Use History: None Reported Past Drug Use History: None Reported - Past Family History Mother Additional Family Medical History / Comment(s): Aortic stenosis; heart valve replacement age 39. Maternal grandmother age 48 [place]; maternal grandfather hx [place] General Exam Limitations: no limitations General appearance: alert, in no apparent distress Head exam: Present: atraumatic, normocephalic Eye exam: Present: normal appearance, PERRL, EOMI ENT exam: Present: mucous membranes moist Neck exam: Present: other (Trachea is in midline). Absent: tenderness, meningi smus Respiratory exam: Present: normal lung sounds bilaterally. Absent: respiratory distress, wheezes, rales, rhonchi, stridor Cardiovascular Exam: Present: regular rate, normal rhythm, normal heart sounds, other (Normal radial pulses bilaterally) GI/Abdominal exam: Present: soft. Absent: distended, tenderness, guarding Extremities exam: Present: full ROM. Absent: pedal edema Back exam: Absent: tenderness Neurological exam: Present: alert, oriented X3, CN II-XII intact, other (NIH stroke scale score = 0). Absent: motor sensory deficit Psychiatric exam: Present: normal affect, normal mood Skin exam: Present: warm, dry, intact, normal color. Absent: rash Course Vital Signs 06/04/22 14:53 Temperature 98.7 F Pulse Rate 89 Respiratory 18 Rate Blood Pressure 119/66 O2 Sat by Pulse 99 Oximetry - Reevaluation(s) Reevaluation #1: 06/04/22 17:11 Patient states that his facial numbness has now improved even more so. Patient denies development of any new symptoms while in the ED. Patient continues to have a normal/nonfocal neurological exam. Patient and brother are aware the patient's test results, and patient feels comfortable being discharged home at this time. Patient was counseled about paresthesias, and he was clearly explained return and follow-up instructions. Patient was instructed to follow up closely with his primary care provider. Patient feels comfortable with this plan. EKG Findings - EKG Comments: EKG Findings:: ED physician interpretation: Normal sinus rhythm, ventricular rate of 82 bpm, no ectopy, normal MS and QRS intervals, normal QT interval, normal axis, no ST or T-wave abnormality Medical Decision Making - Medical Decision Making Was pt. sent in by a medical professional or institution ([facility], STUDENT, urgent care, hospital, or correction...) When possible be specific @ -[No] Did you speak to anyone other than the patient for history (EMS, parent, family, police, friend...)? What history was obtained from this source @ -[No] Did you review nursing and triage notes (agree or disagree)? Why? @ -[I reviewed and agree with nursing and triage notes] Were old charts reviewed (outside hosp., previous admission, EMS record, old EKG, old radiological studies, urgent care reports/EKG's, correction records)? Report findings @ -[No old charts were reviewed] Differential Diagnosis (chest pain, altered mental status, abdominal pain women, abdominal pain men, vaginal bleeding, weakness, fever, dyspnea, syncope, headache, dizziness, GI bleed, back pain, seizure, CVA, palpatations, mental health)? @ -Paresthesias, CVA, TIA, trigeminal neuralgia, neuropathy, electrolyte abnormality, anxiety, MS, neurological condition EKG interpreted by me (3pts min.). @ -[As above] X-rays interpreted by me (1pt min.). @ -Negative chest x-ray CT interpreted by me (1pt min.). @ -No U/S interpreted by me (1pt. min.). @ -[None done] What testing was considered but not performed or refused? (CT, X-rays, U/S, labs)? Why? @ -[None] What meds were considered but not given or refused? Why? @ -[None] Did you discuss the management of the patient with other professionals (professionals i.e. , PA, STUDENT, lab, RT, psych nurse, licensed master social worker, digital intern, teacher, housing officer, briefcase sewer)? Give summary @ -[No] Was smoking cessation discussed for >3mins.? @ -[No] Was critical care preformed (if so, how long)? @ -[No] Were there social determinants of health that impacted care today? How? (Homelessness, low income, unemployed, alcoholism, drug addiction, transportation, low edu. Level, literacy, decrease access to med. care, nursing home, rehab)? @ -[No] Was there de-escalation of care discussed even if they declined (Discuss DNR or withdrawal of care, Hospice)? DNR status @ -[No] What co-morbidities impacted this encounter? (DM, HTN, Smoking, COPD, CAD, Cancer, CVA, ARF, Chemo, Hep., AIDS, mental health diagnosis, sleep apnea, morbid obesity)? @ -[Seizure disorder] Was patient admitted / discharged? Hospital course, mention meds given and route, prescriptions, significant lab abnormalities, going to OR and other pertinent info. @ -Patient's EKG, labs and imaging studies are all unremarkable. Patient has a normal/nonfocal neurological exam and an NIH stroke scale score of 0. I am uncertain of the exact etiology of the patient's reported left facial paresthesias, but he has no evidence of neurological or sensory deficit on exam. I do not suspect an emergent medical condition at this time. Will discharge patient home at this time with instructions for close follow-up with his primary care provider. Patient feels comfortable with this plan. Undiagnosed new problem with uncertain prognosis? @ -[No] Drug Therapy requiring intensive monitoring for toxicity (Heparin, Nitro, Ins ulin, Cardizem)? @ -[No] Were any procedures done? @ -[No] Diagnosis/symptom? @ -Facial paresthesias Acute, or Chronic, or Acute on Chronic? @ -Acute Uncomplicated (without systemic symptoms) or Complicated (systemic symptoms)? @ -Uncomplicated Side effects of treatment? @ -[No] Exacerbation, Progression, or Severe Exacerbation? @ -[No] Poses a threat to life or bodily function? How? (Chest pain, [place], [place], pneumonia, PE, COPD, DKA, ARF, appy, cholecystitis, CVA, Diverticulitis, Homicidal, Suicidal, threat to staff... and all critical care pts) @ -[No] - Lab Data Result diagrams: 06/04/22 15:53 06/04/22 15:53 Lab Results 06/04/22 06/04/22 06/04/22 Range/Units 15:53 15:53 15:53 WBC 7.6 (3.8-10.6) k/uL RBC 5.58 (4.30-5.90) m/uL Hgb 16.5 (13.0-17.5) gm/dL Hct 48.1 (39.0-53.0) % MCV 86.2 (80.0-100.0) fL MCH 29.6 (25.0-35.0) pg MCHC 34.4 (31.0-37.0) g/dL RDW 12.6 (11.5-15.5) % Plt Count 342 (150-450) k/uL MPV 6.3 Neutrophils % 68 % Lymphocytes % 22 % Monocytes % 7 % Eosinophils % 2 % Basophils % 0 % Neutrophils # 5.2 (1.3-7.7) k/uL Lymphocytes # 1.7 (1.0-4.8) k/uL Monocytes # 0.5 (0-1.0) k/uL Eosinophils # 0.1 (0-0.7) k/uL Basophils # 0.0 (0-0.2) k/uL PT 10.9 (9.0-12.0) sec INR 1.0 (<1.2) APTT 26.7 (22.0-30.0) sec Sodium 141 (137-145) mmol/L Potassium 4.5 (3.5-5.1) mmol/L Chloride 101 (98-107) mmol/L Carbon Dioxide 31 H (22-30) mmol/L Anion Gap 9 mmol/L BUN 16 (9-20) mg/dL Creatinine 0.82 (0.66-1.25) mg/dL Est GFR (CKD-EPI)AfAm >90 (>60 ml/min/1.73 sqM) Est GFR (CKD-EPI)NonAf >90 (>60 ml/min/1.73 sqM) Glucose 84 (74-99) mg/dL Calcium 10.0 (8.4-10.2) mg/dL Total Bilirubin 0.4 (0.2-1.3) mg/dL AST 35 (17-59) U/L ALT 48 (4-49) U/L Alkaline Phosphatase 93 (38-126) U/L Troponin I (0.000-0.034) ng/mL Total Protein 8.2 (6.3-8.2) g/dL Albumin 4.8 (3.5-5.0) g/dL Phenytoin 9.6 ug/mL 06/04/22 Range/Units 15:53 WBC (3.8-10.6) k/uL RBC (4.30-5.90) m/uL Hgb (13.0-17.5) gm/dL Hct (39.0-53.0) % MCV (80.0-100.0) fL MCH (25.0-35.0) pg MCHC (31.0-37.0) g/dL RDW (11.5-15.5) % Plt Count (150-450) k/uL MPV Neutrophils % % Lymphocytes % % Monocytes % % Eosinophils % % Basophils % % Neutrophils # (1.3-7.7) k/uL Lymphocytes # (1.0-4.8) k/uL Monocytes # (0-1.0) k/uL Eosinophils # (0-0.7) k/uL Basophils # (0-0.2) k/uL PT (9.0-12.0) sec INR (<1.2) APTT (22.0-30.0) sec Sodium (137-145) mmol/L Potassium (3.5-5.1) mmol/L Chloride (98-107) mmol/L Carbon Dioxide (22-30) mmol/L Anion Gap mmol/L BUN (9-20) mg/dL Creatinine (0.66-1.25) mg/dL Est GFR (CKD-EPI)AfAm (>60 ml/min/1.73 sqM) Est GFR (CKD-EPI)NonAf (>60 ml/min/1.73 sqM) Glucose (74-99) mg/dL Calcium (8.4-10.2) mg/dL Total Bilirubin (0.2-1.3) mg/dL AST (17-59) U/L ALT (4-49) U/L Alkaline Phosphatase (38-126) U/L Troponin I <0.012 (0.000-0.034) ng/mL Total Protein (6.3-8.2) g/dL Albumin (3.5-5.0) g/dL Phenytoin ug/mL - Radiology Data Chest x-ray: No acute cardiopulmonary disease/process. Noncontrast head CT: No acute intracranial process. Disposition Clinical Impression: Facial paresthesia Disposition: HOME SELF-CARE Condition: Stable Instructions (If sedation given, give patient instructions): Paresthesia (ED) Additional Instructions: Return to the ER immediately should he develop new or worsening numbness, any significant pain, weakness, visual changes, speech difficulty, shortness of breath, feeling dizzy or faint, or new or worsening symptoms. Follow up closely with your primary care provider. Is patient prescribed a controlled substance at d/c from ED?: No Referrals: Ton Charles DO [Primary Care Provider] - 1-2 days Time of Disposition: 17:15
[2022-06-04 16:00] LABS: Basophils % (A) 0 %; Eosinophils # (A) 0.1 k/uL (0-0.7); Eosinophils % (A) 2 %; HCT 48.1 % (39.0-53.0); HGB 16.5 gm/dL (13.0-17.5); Lymphocytes # (A) 1.7 k/uL (1.0-4.8); Lymphocytes % (A) 22 %; MCH 29.6 pg (25.0-35.0); MCHC 34.4 g/dL (31.0-37.0); MCV 86.2 fL (80.0-100.0); Mean Platelet Volume 6.3; Monocytes # (A) 0.5 k/uL (0-1.0); Monocytes % (A) 7 %; Neutrophils # (A) 5.2 k/uL (1.3-7.7); Neutrophils % (A) 68 %; Platelet Count 342 k/uL (150-450); RBC 5.58 m/uL (4.30-5.90); RDW 12.6 % (11.5-15.5); WBC 7.6 k/uL (3.8-10.6)
[2022-06-04 16:15] LABS: ALT 48 U/L (4-49); AST 35 U/L (17-59); African American GFR (CKD) >90 (>60 ml/min/1.73 sqM); Albumin 4.8 g/dL (3.5-5.0); Alkaline Phosphatase 93 U/L (38-126); Anion Gap 9 mmol/L; Blood Urea Nitrogen 16 mg/dL (9-20); Carbon Dioxide 31 mmol/L (22-30); Chloride 101 mmol/L (98-107); Glucose 84 mg/dL (74-99); Non-African American GFR(CKD) >90 (>60 ml/min/1.73 sqM); Phenytoin (Dilantin) 9.6 ug/mL; Potassium 4.5 mmol/L (3.5-5.1); Sodium 141 mmol/L (137-145); Total Bilirubin 0.4 mg/dL (0.2-1.3); Total Protein 8.2 g/dL (6.3-8.2)
--- NOTE | 2022-06-04 16:30 | CT ---
EXAMINATION TYPE: CT brain wo con CT DLP: 1206.4 mGycm, Automated exposure control for dose reduction was used. DATE OF EXAM: 06/04/2022 4:01 PM COMPARISON: None. CLINICAL INDICATION:Male, 26 years old with history of Neuro deficit, acute, stroke suspected, left s ided facial numbness TECHNIQUE: Brain: Axial CT images of the brain were obtained with coronal and sagittal reformats created and rev iewed. Contrast used: None. Oral contrast used: None. FINDINGS: Brain: Extra-axial spaces: No abnormal extra-axial fluid collections. Ventricular system: Within normal limits Cerebral parenchyma: No acute intraparenchymal hemorrhage or mass effect. The pfeiffer-white junction is well differentiated. Cerebellum: Unremarkable. Mass effect: No evidence of midline shift. Intracranial vasculature: unremarkable Soft tissues: Normal. Calvarium/osseous structures: No depressed skull fracture. Paranasal sinuses and mastoid air cells: Mild scattered paranasal sinus disease. Visualized orbits: Orbital contents are intact. IMPRESSION: No acute intracranial process.
[2022-06-04 16:35] LABS: Partial Thromboplastin Time 26.7 sec (22.0-30.0); Prothrombin Time 10.9 sec (9.0-12.0)
--- NOTE | 2022-06-04 16:52 | XR ---
EXAMINATION TYPE: XR chest 2V DATE OF EXAM: 06/04/2022 4:05 PM COMPARISON: Chest x-ray 06/04/2019 3:23 AM TECHNIQUE: XR chest 2V . CLINICAL INDICATION:Male, 26 years old with history of altered mental status; FINDINGS: Lungs/Pleura: There is no evidence of pleural effusion, focal consolidation, or pneumothorax. Pulmonary vascularity: Unremarkable. Heart/mediastinum: Cardiomediastinal silhouette is unremarkable. Musculoskeletal: No acute osseous pathology. IMPRESSION: No acute cardiopulmonary disease/process.
[2022-06-04 17:27] VITALS: BP 135/66; PULSE 84; RESP 17; TEMP 97.8
== END 2022-06-04 17:27 | disposition home or self-care (01) ==
LOC: EC 14:45
DX: R20.2 Paresthesia of skin (principal); G40.909 Epilepsy, unspecified, not intractable, without status epilepticus; Z88.2 Allergy status to sulfonamides
CPT/HCPCS: 36415; 70450; 71046; 80053; 80185; 84484; 85025; 85610; 85730; 93005; 99284

== ENCOUNTER → 2022-06-11 | Outpatient (CLI) | payer OTHER ==
[2022-06-11 16:51] LABS: Basophils # (A) 0.02 X 10*3/uL (0.00-0.10); Basophils % (A) 0.3 %; Eosinophils # (A) 0.21 X 10*3/uL (0.04-0.35); Eosinophils % (A) 2.7 %; HGB 15.4 g/dL (13.0-17.0); Immature Grans, Automated 0.4 %; Lymphocytes # (A) 2.79 X 10*3/uL (0.90-5.00); Lymphocytes % (A) 35.8 %; MCH 29.2 pg (27.0-32.0); MCHC 32.8 g/dL (32.0-37.0); MCV 89.2 fL (80.0-97.0); Mean Platelet Volume 9.4 fL (9.5-12.2); Monocytes # (A) 0.66 X 10*3/uL (0.20-1.00); Monocytes % (A) 8.5 %; NRBC Per 100 WBC 0 /100 WBCS (0.0-0.0); Neutrophils # (A) 4.08 X 10*3/uL (1.80-7.70); Neutrophils % (A) 52.3 %; Platelet Count 378 X 10*3/uL (140-440); RBC 5.27 X 10*6/uL (4.40-5.60); RDW 12.9 % (11.5-14.5); WBC 7.79 X 10*3/uL (4.50-10.00)
[2022-06-11 17:06] LABS: African American GFR (CKD) 140.9 (60.0-200.0); BUN/Creat Ratio 19.75 Ratio (12.00-20.00); Blood Urea Nitrogen 15.8 mg/dL (9.0-27.0); Calcium 9.7 mg/dL (8.7-10.3); Carbon Dioxide 26.9 mmol/L (20.0-27.5); Chloride 101 mmol/L (96-109); Chol/HDL Ratio 5.04 Ratio; Glucose 77 mg/dL (70-110); LDL Cholesterol,Calculated 132.7 mg/dL (0.0-131.0); Non-African American GFR(CKD) 121.6 (60.0-200.0); Sodium 140 mmol/L (135-145)
[2022-06-11 18:48] LABS: Phenytoin (Dilantin) 11.6 ug/mL (10.0-20.0)
== END | disposition home or self-care (01) ==
LOC: LABWHC1 08:24
PROVIDERS: ATTEND Family Medicine
DX: Z00.00 Encounter for general adult medical examination without abnormal findings (principal); D72.829 Elevated white blood cell count, unspecified; I10 Essential (primary) hypertension
CPT/HCPCS: 36415; 80048; 80061; 80185; 85025

== ENCOUNTER → 2023-01-05 | Outpatient (CLI) | payer OTHER ==
--- NOTE | 2023-01-05 15:38 | P.PN ---
Subjective DATE: 01/05/2023 FOLLOW UP VISIT. Patient with obstructive sleep apnea hypopnea syndrome return to sleep center for follow-up visit. Information from previous visit have been reviewed. Patient is using PAP equipment every night for the whole night, getting PAP supplies in time. The patient does not have significant problems with the mask, PAP unit and humidification. [place] sleepiness scale is 4, which is normal. I checked information from PAP unit. PAP unit pressure 12/9 cm H2O. Usage is 90 % for more then 4 hours, average 7.8 hours per night. Leak is 31.1 l/m, which is in acceptable range. Apnea Hypopnea Index is 2.4, which is normal. MEDICATIONS:1. Dilantin once a day 2. Nortriptyline once a day 3. Chlorthalidone once a day During physical exam: GENERAL: A pleasant patient without any distress. VITAL SIGNS: BP 133/85, HR 105, RR 16 , weight 293.4, temperature 96.8, oxygen saturation at room air 100 % . HEENT: PERRLA, EOMI.low position of soft palate, Mallapati 4 . NECK: Supple. No JVD. LUNGS: Clear to percussion and to auscultation. Good air exchange. No wheezing or rhonchi. HEART: S1, S2 regular. ABDOMEN: Soft and nontender. Slightly obese EXTREMITIES: No clubbing or cyanosis. WOUND CARE PHYSICIAN: Awake, alert, and oriented x3. No focal deficit. Impressions: 1. Obstructive sleep apnea-hypopnea syndrome. Patient demonstrated great compliance with treatment, benefiting from treatment. 2. History of epilepsy. 3. Obesity, BMI 37.6, patient lost 3 pounds comparing to the previous visit. 4. History of ear infection the past. 5. Restriction of nasal breathing. Plan: 1. Continue using PAP equipment every night for the whole night. 2. To change air filter at least 1-2 times per month. 3. PAP unit should stay lower then position of the head. 4. Advised patient to remove all remaining water from humidifier canister daily and make it dry after each usage. Refill canister with fresh distilled water before each usage. 5. Sleep hygiene with regular time in bed for at least 8 hours. 6. Precautions related to driving. No driving if feel any sleepiness. 7. I will maintain prescription for PAP supplies including mask, tube, filters. 8. Follow up visit in 6 months or earlier if patient has any problems. 9. Watching and losing weight. Thank you very much for allowing me to participate in the management of your patient. Kilo Washington MD, PhD, FAASM. Diplomat of [employer], Sleep Medicine Board by [employer] [facility] [place]
== END ==
LOC: 3 N SLEEP 15:09
PROVIDERS: ATTEND Internal Medicine
DX: G47.33 Obstructive sleep apnea (adult) (pediatric) (principal); G40.909 Epilepsy, unspecified, not intractable, without status epilepticus; E66.9 Obesity, unspecified; H66.90 Otitis media, unspecified, unspecified ear; Z68.37 Body mass index [BMI] 37.0-37.9, adult; Z99.89 Dependence on other enabling machines and devices; Z88.2 Allergy status to sulfonamides; Z88.8 Allergy status to other drugs, medicaments and biological substances
CPT/HCPCS: 99212

== ENCOUNTER → 2023-06-03 | Outpatient (CLI) | payer OTHER | END | disposition home or self-care (01) | LOC: LABWHC1 09:21 | PROVIDERS: ATTEND Psychiatry & Neurology Neurology | DX: G40.209 Localization-related (focal) (partial) symptomatic epilepsy and epileptic syndromes with complex partial seizures, not intractable, without status epilepticus (principal) | CPT/HCPCS: 36415; 80185 ==

== ENCOUNTER → 2023-07-13 | Outpatient (CLI) | payer OTHER ==
[2023-07-13 16:19] VITALS: BP 127/83; PULSE 89; RESP 18; TEMP 98
--- NOTE | 2023-07-13 16:26 | P.PN ---
Subjective DATE: 07/13/2023 FOLLOW UP VISIT. Patient with obstructive sleep apnea hypopnea syndrome return to sleep center for follow-up visit. Information from previous visit have been reviewed. Patient is using PAP equipment every night for the whole night, getting PAP supplies in time. The patient does not have significant problems with the mask, PAP unit and humidification. [place] sleepiness scale is 7, which is normal. I checked information from PAP unit. BPAP unit pressure 12/9 cm H2O. Usage is 100% for more then 4 hours, average 9.1 hours per night. Leak is 28 l/m, which is in acceptable range. Apnea Hypopnea Index is 3.0, which is normal. MEDICATIONS:1. Dilantin 100 mg 2 tablets twice a day During physical exam: GENERAL: A pleasant patient without any distress. VITAL SIGNS: See below. HEENT: PERRLA, EOMI.low position of soft palate, Mallapati 4 . NECK: Supple. No JVD. LUNGS: Clear to percussion and to auscultation. Good air exchange. No wheezing or rhonchi. HEART: S1, S2 regular. ABDOMEN: Soft and nontender.[] EXTREMITIES: No clubbing or cyanosis. FINANCIAL SALES CONSULTANT: Awake, alert, and oriented x3. No focal deficit. Impressions: 1. Obstructive sleep apnea-hypopnea syndrome. Patient demonstrated great compliance with treatment, benefiting from treatment. 2. History of epilepsy. 3. Obesity, patient increasingly down 7 pounds compared with the previous visit, BMI 38.5. 4. Resection of nasal breathing. 5. History of ear infection in the past. Plan: 1. Continue using PAP equipment every night for the whole night. 2. To change air filter at least 1-2 times per month. 3. PAP unit should stay lower then position of the head. 4. Advised patient to remove all remaining water from humidifier canister daily and make it dry after each usage. Refill canister with fresh distilled water before each usage. 5. Sleep hygiene with regular time in bed for at least 8 hours. 6. Precautions related to driving. No driving if feel any sleepiness. 7. I will maintain prescription for PAP supplies including mask, tube, filters. 8. Watching and losing weight. 9. Follow up visit in 6 months or earlier if patient has any problems. Thank you very much for allowing me to participate in the management of your patient. Kilo Washington MD, PhD, FAASM. Diplomat of [place] [employer], Sleep Medicine Board by [employer] Artificial Fly Tier [facility] [place] Objective - Vital Signs Vital signs: Vital Signs Temp 98 F 07/13/23 15:49 Pulse 89 07/13/23 15:49 Resp 18 07/13/23 15:49 BP 127/83 07/13/23 15:49 Pulse Ox 99 07/13/23 15:49 FiO2
== END ==
LOC: 3 N SLEEP 15:16
PROVIDERS: ATTEND Internal Medicine
DX: G47.33 Obstructive sleep apnea (adult) (pediatric) (principal); E66.9 Obesity, unspecified; Z86.69 Personal history of other diseases of the nervous system and sense organs; Z99.89 Dependence on other enabling machines and devices; Z68.38 Body mass index [BMI] 38.0-38.9, adult; Z88.2 Allergy status to sulfonamides; Z88.1 Allergy status to other antibiotic agents
CPT/HCPCS: 99212

== ENCOUNTER → 2024-02-14 | Outpatient (CLI) | payer OTHER ==
[2024-02-14 15:41] VITALS: BP 120/75; PULSE 84; RESP 16; TEMP 97.7
--- NOTE | 2024-02-14 16:32 | P.PROGSL ---
Subjective DATE: 02/14/2024 FOLLOW UP VISIT. Patient with obstructive sleep apnea hypopnea syndrome return to sleep center for follow-up visit. Information from previous visit have been reviewed. Patient is using PAP equipment every night for the whole night, getting PAP supplies in time. The patient does not have significant problems with the mask, PAP unit and humidification. [place] sleepiness scale is 6, which is normal. I checked information from PAP unit. BPAP unit pressure 12/9 cm H2O. Usage is 100% for more then 4 hours, average 8.4 hours per night. Leak is increased to 35 l/m, patient has pedroza and mustache. Apnea Hypopnea Index is 3.2, which is normal. MEDICATIONS have been reviewed, please see below. During physical exam: GENERAL: A pleasant patient without any distress. VITAL SIGNS: Please see below, weight is 321 lbs. HEENT: PERRLA, EOMI.low position of soft palate, Mallapati 4 . NECK: Supple. No JVD. LUNGS: Clear to percussion and to auscultation. Good air exchange. No wheezing or rhonchi. HEART: S1, S2 regular. ABDOMEN: Soft and nontender. Obese EXTREMITIES: No clubbing or cyanosis. SENIOR LOAN PROCESSOR: Awake, alert, and oriented x3. No focal deficit. Impressions: 1. Obstructive sleep apnea-hypopnea syndrome. Patient demonstrated great compliance with treatment, benefiting from treatment. 2. Obesity, BMI 41.0. 3. History of epilepsy. 4. History of some restriction of nasal breathing. 5. History of ear infection in the past. Plan: 1. Continue using PAP equipment every night for the whole night. 2. Sleep hygiene with regular time in bed for at least 7.5-8 hours 3. PAP unit should stay lower then position of the head. 4. Advised patient to remove all remaining water from humidifier canister daily and make it dry after each usage. Refill canister with fresh distilled water before each usage. 5. Watching and losing weight. 6. Precautions related to driving. No driving if feel any sleepiness. 7. I will maintain prescription for PAP supplies including mask, tube, filters. 8. Follow up visit in 6 months or earlier if patient has any problems. Thank you very much for allowing me to participate in the management of your patient. Kilo Washington MD, PhD, FAASM. Diplomat of [place] [employer], Sleep Medicine Board by [employer] [employer] Heat Treater Apprentice of [facility] [place] Objective - Vital Signs Vital Signs: Vital Signs Temp 97.7 F 02/14/24 15:40 Pulse 84 02/14/24 15:40 Resp 16 02/14/24 15:40 BP 120/75 02/14/24 15:40 Pulse Ox 98 02/14/24 15:40 FiO2 Intake & Output 02/13/24 02/14/24 02/14/24 18:59 06:59 18:59 Weight 145.603 kg Home Medications: Home Medications Medication Instructions Recorded Confirmed Type Phenytoin Sodium Extended 200 mg PO BID 10/21/20 02/14/24 History [Dilantin] Chlorthalidone [Hygroton] 25 mg PO DAILY 06/04/22 02/14/24 History Famotidine [Pepcid] 20 mg PO DAILY PRN 07/13/23 02/14/24 History Fenofibrate [Lofibra] 160 mg PO DAILY 02/14/24 02/14/24 History
== END | disposition home or self-care (01) ==
LOC: 3 N SLEEP 15:21
PROVIDERS: ATTEND Internal Medicine
CPT/HCPCS: 99212

== ENCOUNTER → 2024-10-17 | Outpatient (CLI) | payer OTHER ==
[2024-10-17 15:09] VITALS: BP 125/74; PULSE 86; RESP 18; TEMP 98
--- NOTE | 2024-10-17 15:26 | P.PROGSL ---
Subjective DATE: 10/17/2024 FOLLOW UP VISIT. Patient with obstructive sleep apnea hypopnea syndrome return to sleep center for follow-up visit. Information from previous visit have been reviewed. Patient is using PAP equipment every night for the whole night, getting PAP supplies in time. The patient does not have significant problems with the mask, PAP unit and humidification. [place] sleepiness scale is 5, which is normal. I checked information from PAP unit. BPAP unit pressure 12/9 cm H2O. Usage is 100% for more then 4 hours, average 7.7 hours per night. Leak is 29 l/m, which is in acceptable range. Apnea Hypopnea Index is 2.5, which is normal. MEDICATIONS: Please see below. During physical exam: GENERAL: A pleasant patient without any distress. VITAL SIGNS: Please see below, weight is 294.8 lbs. HEENT: PERRLA, EOMI.low position of soft palate, Mallapati 4 . NECK: Supple. No JVD. LUNGS: Clear to percussion and to auscultation. Good air exchange. No wheezing or rhonchi. HEART: S1, S2 regular. ABDOMEN: Soft and nontender. Obese EXTREMITIES: No clubbing or cyanosis. LEATHER GRADER: Awake, alert, and oriented x3. No focal deficit. Impressions: 1. Obstructive sleep apnea-hypopnea syndrome. Patient demonstrated great compliance with treatment, benefiting from treatment. 2. Obesity, BMI 39.7, patient lost 27 pounds since previous visit. 3. History of epilepsy. 4. Restriction of nasal breathing. 5. History of ear infection in the past. Plan: 1. Continue using PAP equipment every night for the whole night. 2. Sleep hygiene with regular time in bed for at least 7.5-8 hours 3. PAP unit should stay lower then position of the head. 4. Advised patient to remove all remaining water from humidifier canister daily and make it dry after each usage. Refill canister with fresh distilled water before each usage. 5. Watching weight. 6. Precautions related to driving. No driving if feel any sleepiness. 7. I will maintain prescription for PAP supplies including mask, tube, filters. 8. Follow up visit in 8 months or earlier if patient has any problems. Thank you very much for allowing me to participate in the management of your patient. Kilo Washington MD, PhD, FAASM. Diplomat of [place] [employer], Sleep Medicine Board by [place] Home Care Consultant of [facility] [place] Objective - Vital Signs Vital Signs: Vital Signs Temp 98.0 F 10/17/24 15:07 Pulse 86 10/17/24 15:07 Resp 18 10/17/24 15:07 BP 125/74 10/17/24 15:07 Pulse Ox 97 10/17/24 15:07 FiO2 Intake & Output 10/16/24 10/17/24 10/17/24 18:59 06:59 18:59 Weight 133.583 kg Home Medications: Home Medications Medication Instructions Recorded Confirmed Type Phenytoin Sodium Extended 200 mg PO BID 10/21/20 02/14/24 History [Dilantin] Chlorthalidone [Hygroton] 25 mg PO DAILY 06/04/22 10/17/24 History Famotidine [Pepcid] 20 mg PO DAILY PRN 07/13/23 02/14/24 History Fenofibrate [Lofibra] 160 mg PO DAILY 02/14/24 10/17/24 History Brivaracetam [Briviact] 50 mg PO DAILY 10/17/24 10/17/24 History Nortriptyline [Pamelor] 50 mg PO DAILY 10/17/24 10/17/24 History Phentermine HCl 37.5 mg PO [id number] 10/17/24 10/17/24 History
== END ==
LOC: 3 N SLEEP 14:44
PROVIDERS: ATTEND Internal Medicine
DX: G47.33 Obstructive sleep apnea (adult) (pediatric) (principal); E66.9 Obesity, unspecified; R09.81 Nasal congestion; Z68.39 Body mass index [BMI] 39.0-39.9, adult; Z86.69 Personal history of other diseases of the nervous system and sense organs; Z99.89 Dependence on other enabling machines and devices; Z88.1 Allergy status to other antibiotic agents; Z88.2 Allergy status to sulfonamides
CPT/HCPCS: 99212

== ENCOUNTER → 2024-10-26 | Outpatient (CLI) | payer OTHER | END | disposition home or self-care (01) | LOC: LABWHC1 08:56 | PROVIDERS: ATTEND Psychiatry & Neurology Neurology | DX: G40.209 Localization-related (focal) (partial) symptomatic epilepsy and epileptic syndromes with complex partial seizures, not intractable, without status epilepticus (principal) | CPT/HCPCS: 36415 ==